=== PATIENT | male | born 1945 | race Caucasian/White ===

== ENCOUNTER → 2019-01-24 | Outpatient (CLI) | payer MEDICARE ==
[2019-01-24 19:31] LABS: Source, Urine Clean Catch
[2019-01-24 19:41] LABS: Bilirubin, Urine Neg (Neg); Blood, Urine Neg (Neg); Glucose Qualitative, Urine Neg (Neg); Ketones, Urine Neg (Neg); Leukocyte Esterase, Urine 1+ (Neg); Nitrite, Urine Neg (Neg); Protein, Urine Neg (Neg); Urobilinogen, Urine NORM (Normal)
[2019-01-24 19:46] LABS: Appearance, Urine Clear (Clear); Color, Urine Yellow (P-Yellow)
[2019-01-24 19:47] LABS: Bacteria Mod /hpf; Red Blood Cells, Urine 0-2 /hpf (0-2); Squamous Epithelial Cells Few /hpf (Few)
== END | disposition home or self-care (01) ==
LOC: LAB 19:28 → LAB SHORT 19:28
PROVIDERS: Psychiatry & Neurology Psychiatry
DX: N39.0 Urinary tract infection, site not specified (principal)
CPT/HCPCS: 81001; 87086

== ENCOUNTER → 2019-03-01 | Outpatient (CLI) | payer MEDICARE, OTHER ==
[2019-03-01 19:26] LABS: Source, Urine Clean Catch
[2019-03-01 19:40] LABS: Appearance, Urine Clear (Clear); Bilirubin, Urine Neg (Neg); Blood, Urine Neg (Neg); Color, Urine Yellow (P-Yellow); Glucose Qualitative, Urine Neg (Neg); Ketones, Urine Neg (Neg); Leukocyte Esterase, Urine Neg (Neg); Nitrite, Urine Neg (Neg); Protein, Urine Neg (Neg); Specific Gravity, Urine 1.015 (1.003-1.022); Urobilinogen, Urine NORM (Normal)
== END | disposition home or self-care (01) ==
LOC: LAB 19:24 → LAB SHORT 19:24
PROVIDERS: Nurse Practitioner Family
DX: N39.0 Urinary tract infection, site not specified (principal)
CPT/HCPCS: 81003

== ENCOUNTER 2019-03-16 12:40 | Inpatient (IN) | payer MEDICARE, OTHER ==
[~2019-03-16] VITALS: Ht 177.8 cm; Wt 68.0 kg
[2019-03-16] MEDS ORDERED: ASPI81CH PO (13:47)
[2019-03-16] MEDS ORDERED: Prozac20 MG PO (13:48)
[2019-03-16] MEDS ORDERED: DOXE10 PO (13:48)
[2019-03-16] MEDS ORDERED: FAMO20 PO (13:48)
[2019-03-16] MEDS ORDERED: Haloperidol2 MG/1 ML PO ×2 (13:49→13:57)
[2019-03-16] MEDS ORDERED: FOLI1 PO (13:49)
[2019-03-16] MEDS ORDERED: METTREX2.5 PO (13:50)
[2019-03-16] MEDS ORDERED: LEVSOD125 PO (13:50)
[2019-03-16] MEDS ORDERED: Senna Plus Tab1 EACH PO (13:51)
[2019-03-16] MEDS ORDERED: VITAMIN B-121000 MCG PO (13:52)
[2019-03-16] MEDS ORDERED: B-1100 MG PO (13:52)
[2019-03-16] MEDS ORDERED: ACET325 PO (13:53)
[2019-03-16] MEDS ORDERED: ANTACID PLUS A355 M1 PO (13:54)
[2019-03-16] MEDS ORDERED: BISA10S PR (13:55)
[2019-03-16] MEDS ORDERED: PHOSPHASODA PR (13:55)
[2019-03-16] MEDS ORDERED: Cough Syru100 MG/5 M PO (13:56)
[2019-03-16 13:57] LABS: BASOPHILS ABSOLUTE AUTO 0.06 K/mm3 (0.00-0.23); BASOPHILS PERCENT AUTO 0 % (0-2); EOSINOPHILS ABSOLUTE AUTO 0.02 K/mm3 (0.00-0.68); EOSINOPHILS PERCENT AUTO 0 % (0-6); Hemoglobin 12.7 g/dL (13.5-17.5); IMMATURE GRAN ABSOLUTE AUTO 0.13 K/mm3 (0.00-0.10); IMMATURE GRAN PERCENT AUTO 1 % (0-1); LYMPHOCYTES ABSOLUTE AUTO 1.68 K/mm3 (0.84-5.20); LYMPHOCYTES PERCENT AUTO 7 % (21-46); MONOCYTES ABSOLUTE AUTO 2.11 K/mm3 (0.16-1.47); MONOCYTES PERCENT AUTO 8 % (4-13); Mean Corpuscular HGB 30.9 pg (26.0-34.0); Mean Corpuscular Volume 100 fL (80-100); Mean Platelet Volume 9.6 fL (9.1-12.4); NEUTROPHILS ABSOLUTE AUTO 21.45 K/mm3 (1.96-9.15); NEUTROPHILS PERCENT AUTO 84 % (41-73); Platelet Count 293 K/mm3 (150-400); RDW Coefficient Variation 14.1 % (11.7-14.2); RDW Standard Deviation 51.7 fL (35.1-46.3); Red Blood Cell Count 4.11 M/mm3 (4.30-5.90); White Blood Cell Count 25.45 K/mm3 (4.00-11.30)
[2019-03-16] MEDS ORDERED: Anti-Diarrheal2 MG PO (13:57)
[2019-03-16] MEDS ORDERED: Milk Of Ma400 MG/5 M PO (13:57)
[2019-03-16] MEDS ORDERED: ONDA4ODT SL (13:58)
[2019-03-16] MEDS ORDERED: Triple Antibio1 EACH TOP (13:59)
[2019-03-16 16:29] LABS: Alanine Aminotransfer (ALT/SGP 49 U/L (12-78); Albumin, Blood 2.8 g/dL (3.4-5.0); Albumin/Globulin Ratio 0.6 (0.8-1.8); Alk Phos 139 U/L (50-136); Anion Gap 8 mmol/L (6-16); Aspartate Aminotrans (AST/SGOT 37 U/L (12-37); Bilirubin, Total 0.7 mg/dL (0.1-1.0); Blood Urea Nitrogen 16 mg/dL (8-24); Bun/Creatinine Ratio 23.8 (12.0-20.0); CO2, Blood 26 mmol/L (21-32); Calcium, Blood 8.8 mg/dL (8.5-10.1); Chloride, Blood 106 mmol/L (98-108); Creatinine, Blood 0.67 mg/dL (0.60-1.20); Globulin, Blood 4.4 g/dL (2.2-4.0); Glomerular Filtration Rate >60 (60-); Glucose, Blood 127 mg/dL (70-99); Potassium, Blood 3.5 mmol/L (3.5-5.5); Sodium, Blood 140 mmol/L (136-145); Total Protein, Blood 7.2 g/dL (6.4-8.2); Troponin I <0.015 ng/mL (0.000-0.040)
--- NOTE | 2019-03-16 19:27 | NUR ---
SHIFT SUMMARY: PATIENT ADMIT FROM ED THIS SHIFT. PT SLEEPING SINCE ARRIVAL ON MEDICAL; NO C/O PAIN OR NAUSEA. IV FLUIDS & ABX INFUSING. REPORT GIVEN TO ONCOMING RN.
--- NOTE | 2019-03-16 21:49 | NUR ---
THIS NURSE CONTACTED [facility] AND REQUESTED THAT A CURRENT MEDICATIONS LIST BE PROVIDED TO HOSPITAL WITH THIS NURSE PROVIDING FAX NUMBER ([phone]). FACILITY WILL FAX THIS INFORMATION TONIGHT.
[2019-03-16] MEDS ORDERED: LEVO750 PO (23:08)
--- NOTE | 2019-03-17 04:08 | NUR ---
SHIFT SUMMARY: 73 Y/O MALE RESTED COMFORTABLY ALL SHIFT. PT REFUSED TO TAKE ANY EVENING OR EARLY AM MEDICATIONS AND WOULD NOT DRINK WATER WHEN OFFERED BY STAFF. PT IS CONFUSED AND UNABLE TO VOICE ANY UNDERSTANDABLE WORDS. PT INCONTINENT BLADDER WITH ENTIRE BEDDING CHANGED ONCE. PT APPEARS TO HAVE NO PAIN OR NAUSEA. PTS BED ALARM APPLIED, BED LOW POSITION, CALL LIGHT AT SIDE.
[2019-03-17 05:06] LABS: BASOPHILS ABSOLUTE AUTO 0.05 K/mm3 (0.00-0.23); BASOPHILS PERCENT AUTO 0 % (0-2); EOSINOPHILS ABSOLUTE AUTO 0.02 K/mm3 (0.00-0.68); EOSINOPHILS PERCENT AUTO 0 % (0-6); Hemoglobin 11.2 g/dL (13.5-17.5); IMMATURE GRAN ABSOLUTE AUTO 0.12 K/mm3 (0.00-0.10); IMMATURE GRAN PERCENT AUTO 1 % (0-1); LYMPHOCYTES ABSOLUTE AUTO 1.78 K/mm3 (0.84-5.20); LYMPHOCYTES PERCENT AUTO 8 % (21-46); MONOCYTES ABSOLUTE AUTO 1.77 K/mm3 (0.16-1.47); MONOCYTES PERCENT AUTO 8 % (4-13); Mean Corpuscular HGB 31.1 pg (26.0-34.0); Mean Platelet Volume 9.6 fL (9.1-12.4); NEUTROPHILS ABSOLUTE AUTO 18.89 K/mm3 (1.96-9.15); NEUTROPHILS PERCENT AUTO 84 % (41-73); Platelet Count 287 K/mm3 (150-400); RDW Standard Deviation 49.6 fL (35.1-46.3); White Blood Cell Count 22.63 K/mm3 (4.00-11.30)
[2019-03-17 05:16] LABS: Mean Corpuscular Volume 97 fL (80-100)
[2019-03-17 05:29] LABS: Alanine Aminotransfer (ALT/SGP 47 U/L (12-78); Albumin, Blood 2.4 g/dL (3.4-5.0); Albumin/Globulin Ratio 0.6 (0.8-1.8); Alk Phos 144 U/L (50-136); Anion Gap 7 mmol/L (6-16); Aspartate Aminotrans (AST/SGOT 39 U/L (12-37); Blood Urea Nitrogen 13 mg/dL (8-24); Bun/Creatinine Ratio 18.1 (12.0-20.0); CO2, Blood 26 mmol/L (21-32); Calcium, Blood 8.3 mg/dL (8.5-10.1); Chloride, Blood 108 mmol/L (98-108); Creatinine, Blood 0.72 mg/dL (0.60-1.20); Globulin, Blood 4.2 g/dL (2.2-4.0); Glomerular Filtration Rate >60 (60-); Glucose, Blood 108 mg/dL (70-99); Potassium, Blood 3.4 mmol/L (3.5-5.5); Sodium, Blood 141 mmol/L (136-145); Total Protein, Blood 6.6 g/dL (6.4-8.2)
--- NOTE | 2019-03-17 12:26 | NUR ---
HIS IVF'S HAVE BEEN INFUSING WELL ALL DAY. HE HAS ONLY EATEN A CHOCOLATE PUDDING AND SOME SHERBET WITH MEDS. HE HAS REFUSED BREAKFAST AND LUNCH SO FAR TODAY. HE SWEARS AT US WHEN WE GIVE CARE OR TRY TO GIVE CARE. HE HAS SLEPT. HE HAS A SHALLOW WET COUGH I HEAR NOW THAT I DID NOT HEAR THIS MORNING. HE IS WARM AND CLAMMY. TEMP NOW 100.6. HE IS CONFUSED. BED ALARM ON. ATTENDS CHANGED AND PARTIAL BEDBATH DONE. HIS ATTENDS WERE SATURATED.PAS ON BILATERALLY.TRIED TO GIVE HIM PO POTASSIOUM REPLACEMENT BUT HE TOOK ONLY PART OF IT SO FAR. WILL TRY AGAIN.
--- NOTE | 2019-03-17 13:03 | NUR ---
HIS DAUGHTER VERENICE CALLED FOR AN UPDATE. SHE IS [place]. HE ENDED UP EATING 25% OF LUNCH AFTER FIRST REFUSING IT. HE LET ME DO THE RESPIRATORY PANEL VIRAL SWAB JUST NOW.
[2019-03-17 14:46] LABS: Adenovirus Not Detected (NOT DETECT); Bordetella pertussis Not Detected (NOT DETECT); Chlamydophila pneumoniae Not Detected (NOT DETECT); Coronavirus 229E Not Detected (NOT DETECT); Coronavirus HKU1 Not Detected (NOT DETECT); Coronavirus NL63 Not Detected (NOT DETECT); Coronavirus OC43 Not Detected (NOT DETECT); Human Metapneumovirus Not Detected (NOT DETECT); Human Rhinovirus/Enterovirus Not Detected (NOT DETECT); Influenza A Not Detected (NOT DETECT); Influenza A/2009-H1 Not Detected (NOT DETECT); Influenza A/H1 Not Detected (NOT DETECT); Influenza A/H3 Not Detected (NOT DETECT); Influenza B Not Detected (NOT DETECT); Mycoplasma pneumoniae Not Detected (NOT DETECT); Parainfluenza Virus 1 Not Detected (NOT DETECT); Parainfluenza Virus 2 Not Detected (NOT DETECT); Parainfluenza Virus 3 Not Detected (NOT DETECT); Parainfluenza Virus 4 Not Detected (NOT DETECT); Respiratory Syncytial Virus Not Detected (NOT DETECT)
--- NOTE | 2019-03-17 18:35 | NUR ---
HE IS MORE ALERT TONIGHT THAN THIS MORNING. HE WALKED IN THE ROOM WITH SBA. HE WAS CONTINENT THIS LAST TIME. HE EATS IF HE WANTS TO, HAD MODERATE INTAKE THIS EVENING. IVF'S AND ANTIBIOTICS CONTINUE.
--- NOTE | 2019-03-18 04:06 | NUR ---
0345 PT PULLED OUT RIGHT ANTECUBITAL IV WITH ENTIRE CATHETER INTACT. PRESSURE DRESSING APPLIED TO SITE.
[2019-03-18 05:40] LABS: BASOPHILS ABSOLUTE AUTO 0.04 K/mm3 (0.00-0.23); BASOPHILS PERCENT AUTO 0 % (0-2); EOSINOPHILS ABSOLUTE AUTO 0.05 K/mm3 (0.00-0.68); EOSINOPHILS PERCENT AUTO 0 % (0-6); Hematocrit 34.5 % (37.0-53.0); Hemoglobin 11.1 g/dL (13.5-17.5); IMMATURE GRAN ABSOLUTE AUTO 0.19 K/mm3 (0.00-0.10); IMMATURE GRAN PERCENT AUTO 1 % (0-1); LYMPHOCYTES ABSOLUTE AUTO 2.31 K/mm3 (0.84-5.20); LYMPHOCYTES PERCENT AUTO 12 % (21-46); MONOCYTES ABSOLUTE AUTO 1.45 K/mm3 (0.16-1.47); MONOCYTES PERCENT AUTO 8 % (4-13); Mean Corpuscular HGB 30.7 pg (26.0-34.0); Mean Corpuscular HGB Conc 32.2 g/dL (31.5-36.5); Mean Corpuscular Volume 95 fL (80-100); NEUTROPHILS ABSOLUTE AUTO 14.55 K/mm3 (1.96-9.15); NEUTROPHILS PERCENT AUTO 78 % (41-73); Platelet Count 309 K/mm3 (150-400); RDW Coefficient Variation 13.8 % (11.7-14.2); RDW Standard Deviation 48.6 fL (35.1-46.3); Red Blood Cell Count 3.62 M/mm3 (4.30-5.90); White Blood Cell Count 18.59 K/mm3 (4.00-11.30)
[2019-03-18 06:13] LABS: Alanine Aminotransfer (ALT/SGP 36 U/L (12-78); Albumin, Blood 2.2 g/dL (3.4-5.0); Albumin/Globulin Ratio 0.6 (0.8-1.8); Alk Phos 144 U/L (50-136); Anion Gap 7 mmol/L (6-16); Aspartate Aminotrans (AST/SGOT 25 U/L (12-37); Bilirubin, Total 0.7 mg/dL (0.1-1.0); Blood Urea Nitrogen 12 mg/dL (8-24); Bun/Creatinine Ratio 17.8 (12.0-20.0); CO2, Blood 25 mmol/L (21-32); Calcium, Blood 8.3 mg/dL (8.5-10.1); Chloride, Blood 107 mmol/L (98-108); Creatinine, Blood 0.67 mg/dL (0.60-1.20); Glomerular Filtration Rate >60 (60-); Glucose, Blood 101 mg/dL (70-99); Potassium, Blood 3.3 mmol/L (3.5-5.5); Sodium, Blood 139 mmol/L (136-145); Total Protein, Blood 6.2 g/dL (6.4-8.2)
--- NOTE | 2019-03-18 07:27 | NUR ---
SHIFT SUMMARY: 73 Y/O MALE RESTED COMFORTABLY FIRST 6 HOURS OF SHIFT AND THEN BECAME SLIGHTLY MORE RESTLESS WITH TWO IV'S PULLED OUT BY PATIENT. PT ALERT TO PERSON ONLY, FOLLOW SIMPLE VERBAL COMMANDS. PT DID NOT ATTEMPT TO CLIMB OOB. PT DENIES PAIN OR NAUSEA. PTS BED ALARM APPLIED, BED LOW POSITION, CALL LIGHT AT SIDE. PT REQUIRED ASSISTANCE WITH DRINKING FLUIDS AND EATING SNACKS BY STAFF.
[2019-03-18 13:37] LABS: Hematocrit 35.7 % (37.0-53.0); Hemoglobin 11.8 g/dL (13.5-17.5); Mean Corpuscular HGB 31.8 pg (26.0-34.0); Mean Corpuscular HGB Conc 33.1 g/dL (31.5-36.5); Mean Corpuscular Volume 96 fL (80-100); Mean Platelet Volume 9.3 fL (9.1-12.4); Platelet Count 296 K/mm3 (150-400); RDW Coefficient Variation 13.7 % (11.7-14.2); RDW Standard Deviation 48.6 fL (35.1-46.3); Red Blood Cell Count 3.71 M/mm3 (4.30-5.90); White Blood Cell Count 16.03 K/mm3 (4.00-11.30)
--- NOTE | 2019-03-18 15:59 | NUR ---
HE MOVED OVER TO 345 IN THE SCU AT 1550 SO THAT HE CAN AMBULATE FREELY BEHIND CLOSED DOORS. HE HAS BEEN PLEASANTLY CONFUSED ALL DAY. HE HAS EATEN FAIR. HE HAS TAKEN HIS MEDS CRUSHED AND WHOLE BUT ALWAYS IN PUDDING. NO RESPIRATORY DISTRESS. VSS. CONTINUES TO BE INCONTINENT OF URINE. WBC'S COMING DOWN. [facility] RN CALLED ME BACK AND EXPLAINED THEY COULD NOT ACCEPT HIM BACK HOME TODAY BUT WOULD TOMORROW.
--- NOTE | 2019-03-18 17:55 | NUR ---
SHIFT SUMMARY MEDICAL FLOOR TRANSFER TO SCU THIS AFTERNOON. PATIENT UP INDEPENDENT IN ROOM. PATIENT COOPERATIVE WITH CARE BUT DOES ATTEMPT TO LEAVE UNIT. REDIRECTED EASILY. ATTEMPTED TO PULL OUT IV SEVERAL TIMES. CALL LIGHT IN REACH, WILL CONTINUE TO MONITOR.
--- NOTE | 2019-03-19 04:35 | NUR ---
SHIFT SUMMARY PT IS A 73 Y/O MALE, ADMITTED FOR RLL PNA. HE IS A&O X SELF ONLY, AND DIFFICULT TO REDIRECT. PT TENDS TO WANDER IN THE HALLWAY WHEN AWAKE, THOUGH HE WAS PLACED ON A BED ALARM AFTER HE FELL IN HIS ROOM. THERE WAS NO SIGNS OF MAJOR BRUISING OR INJURY, AND PT DENIED ANY COMPLAINTS OF PAIN. VITALS WERE STABLE DURING THE NIGHT AND AFTER HIS FALL. NO COMPLAINTS OF PAIN, NAUSEA OR SOB DURING THE NIGHT. PT SLEPT WELL THROUGH THE NIGHT. NO OTHER ACUTE CHANGES IN PT CONDITION NOTED. WILL CONTINUE TO MONITOR AND TREAT PER EMAR.
[2019-03-19 05:21] LABS: BASOPHILS ABSOLUTE AUTO 0.05 K/mm3 (0.00-0.23); BASOPHILS PERCENT AUTO 0 % (0-2); EOSINOPHILS ABSOLUTE AUTO 0.08 K/mm3 (0.00-0.68); EOSINOPHILS PERCENT AUTO 1 % (0-6); Hematocrit 34.2 % (37.0-53.0); Hemoglobin 11.1 g/dL (13.5-17.5); IMMATURE GRAN ABSOLUTE AUTO 0.19 K/mm3 (0.00-0.10); IMMATURE GRAN PERCENT AUTO 1 % (0-1); LYMPHOCYTES ABSOLUTE AUTO 1.63 K/mm3 (0.84-5.20); LYMPHOCYTES PERCENT AUTO 12 % (21-46); MONOCYTES ABSOLUTE AUTO 1.16 K/mm3 (0.16-1.47); MONOCYTES PERCENT AUTO 9 % (4-13); Mean Corpuscular HGB 31.3 pg (26.0-34.0); Mean Corpuscular HGB Conc 32.5 g/dL (31.5-36.5); Mean Corpuscular Volume 96 fL (80-100); Mean Platelet Volume 9.4 fL (9.1-12.4); NEUTROPHILS ABSOLUTE AUTO 10.21 K/mm3 (1.96-9.15); NEUTROPHILS PERCENT AUTO 77 % (41-73); Platelet Count 324 K/mm3 (150-400); RDW Coefficient Variation 13.7 % (11.7-14.2); RDW Standard Deviation 49.1 fL (35.1-46.3); Red Blood Cell Count 3.55 M/mm3 (4.30-5.90); White Blood Cell Count 13.32 K/mm3 (4.00-11.30)
[2019-03-19 05:45] LABS: Alanine Aminotransfer (ALT/SGP 35 U/L (12-78); Albumin, Blood 2.3 g/dL (3.4-5.0); Albumin/Globulin Ratio 0.6 (0.8-1.8); Alk Phos 143 U/L (50-136); Anion Gap 7 mmol/L (6-16); Aspartate Aminotrans (AST/SGOT 28 U/L (12-37); Bilirubin, Total 0.5 mg/dL (0.1-1.0); Blood Urea Nitrogen 12 mg/dL (8-24); Bun/Creatinine Ratio 17.5 (12.0-20.0); CO2, Blood 25 mmol/L (21-32); Calcium, Blood 8.4 mg/dL (8.5-10.1); Chloride, Blood 107 mmol/L (98-108); Creatinine, Blood 0.69 mg/dL (0.60-1.20); Globulin, Blood 4.1 g/dL (2.2-4.0); Glomerular Filtration Rate >60 (60-); Glucose, Blood 102 mg/dL (70-99); Potassium, Blood 3.5 mmol/L (3.5-5.5); Sodium, Blood 139 mmol/L (136-145); Total Protein, Blood 6.4 g/dL (6.4-8.2)
[2019-03-19] MEDS ORDERED: CVS DISPOSABLE399 ML (12:14)
[2019-03-19] MEDS ORDERED: FLEET ENEMA EX230 ML (12:14)
[2019-03-19] MEDS ORDERED: ALBU90OI INH (12:15)
[2019-03-19] MEDS ORDERED: BENZ100A PO (12:16)
[2019-03-19] MEDS ORDERED: CEPH500 PO (12:17)
[2019-03-19] MEDS ORDERED: Nicoderm Cq1 EACH TOP (12:18)
[2019-03-19] MEDS ORDERED: Florastor250 MG PO (12:19)
--- NOTE | 2019-03-19 16:22 | NUR ---
DISCHARGE SUMMARY PATIENT ALERT TO SELF. REFUSED ALL MORNING MEDICATIONS. WAS VERY DIFFICULT TO REORIENT. PATIENT WAS UP WALKING THE HALLS THIS AFTERNOON, SBA WAS STEADY ON HIS FEET. DISCHARGE INFORMATION REVIEWED AND SENT WITH THE PATIENT. FOLLOW UP APPOINTMENT SCHEDULED. MEDICATIONS FAXED TO PHARMACY. IV D/C, WNL. [facility] TRANSPORTED PATIENT OUT BY WHEELCHAIR, ALL BELONGINGS IN HAND.
== END 2019-03-19 15:50 | disposition home or self-care (01) | DRG 871 ==
LOC: ER 12:40 → MEDS 16:31 → ENPENDDIS 03-19 11:32 → MEDS 03-19 15:50
PROVIDERS: Physician Assistant; ADMIT Family Medicine
DX: A41.9 Sepsis, unspecified organism (principal); J18.9 Pneumonia, unspecified organism; G93.41 Metabolic encephalopathy; Z66 Do not resuscitate; I10 Essential (primary) hypertension; I25.10 Atherosclerotic heart disease of native coronary artery without angina pectoris; E03.9 Hypothyroidism, unspecified; E87.6 Hypokalemia; F17.200 Nicotine dependence, unspecified, uncomplicated; K21.9 Gastro-esophageal reflux disease without esophagitis; F03.90 Unspecified dementia, unspecified severity, without behavioral disturbance, psychotic disturbance, mood disturbance, and anxiety; M06.9 Rheumatoid arthritis, unspecified; J44.9 Chronic obstructive pulmonary disease, unspecified; R74.8 Abnormal levels of other serum enzymes; Z88.5 Allergy status to narcotic agent; Z79.82 Long term (current) use of aspirin; Z79.899 Other long term (current) drug therapy
CPT/HCPCS: 36415; 71045; 71046; 73100; 73120; 80053; 83605; 84145; 84484; 85025; 85027; 87040; 87486; 87581; 87633; 87798; 93005; 93010; 94760; 96365; 96366; 96372-59; 99285-25; J0696; J1630; J1650; J1956; J7030; J7120

== ENCOUNTER → 2019-10-11 | Outpatient (CLI) | payer MEDICARE, OTHER ==
[~2019-10-11] MED LIST: ACET325 PO; ALBU90OI INH; ANTACID PLUS A355 M1 PO; ASPI81CH PO; Anti-Diarrheal2 MG PO; B-1100 MG PO; BENZ100A PO; BISA10S PR; CEPH500 PO; CVS DISPOSABLE399 ML; Cough Syru100 MG/5 M PO; DOXE10 PO; FAMO20 PO; FLEET ENEMA EX230 ML; FOLI1 PO; Florastor250 MG PO; Haloperidol2 MG/1 ML PO; LEVO750 PO; LEVSOD125 PO; METTREX2.5 PO; Milk Of Ma400 MG/5 M PO; Nicoderm Cq1 EACH TOP; ONDA4ODT SL; PHOSPHASODA PR; Prozac20 MG PO; Senna Plus Tab1 EACH PO; Triple Antibio1 EACH TOP; VITAMIN B-121000 MCG PO
[2019-10-12 17:53] LABS: Source, Urine Clean Catch
[2019-10-12 20:06] LABS: Bilirubin, Urine Neg (Neg); Blood, Urine Neg (Neg); Glucose Qualitative, Urine Neg (Neg); Ketones, Urine Neg (Neg); Leukocyte Esterase, Urine Neg (Neg); Nitrite, Urine Neg (Neg); Protein, Urine Neg (Neg); Specific Gravity, Urine 1.015 (1.003-1.022); Urobilinogen, Urine NORM (Normal); pH, Urine 6.5 (5.0-8.0)
[2019-10-12 20:08] LABS: Appearance, Urine Clear (Clear); Color, Urine Yellow (P-Yellow)
== END | disposition home or self-care (01) ==
LOC: LAB 17:50 → LAB SHORT 17:50
PROVIDERS: Nurse Practitioner Family
DX: N39.0 Urinary tract infection, site not specified (principal)
CPT/HCPCS: 81003

== ENCOUNTER → 2019-12-18 | Outpatient (CLI) | payer MEDICARE, OTHER ==
[2019-12-18 15:27] LABS: Bilirubin, Urine Neg (Neg); Blood, Urine Neg (Neg); Glucose Qualitative, Urine Neg (Neg); Ketones, Urine Neg (Neg); Leukocyte Esterase, Urine Neg (Neg); Nitrite, Urine Neg (Neg); Protein, Urine 1+ (Neg); Urobilinogen, Urine 2+ (Normal)
[2019-12-18 15:38] LABS: Appearance, Urine Cloudy (Clear); Color, Urine Yellow (P-Yellow)
[2019-12-18 15:39] LABS: Amorphous Heavy (0-Heavy); Bacteria Few /hpf; Calcium Oxalate Crystals Few /hpf; Red Blood Cells, Urine 0-2 /hpf (0-2); Squamous Epithelial Cells Few /hpf (Few); White Blood Cells, Urine 0-2 /hpf (0-5)
== END | disposition home or self-care (01) ==
LOC: LAB SHORT 13:22 → LAB 13:22
PROVIDERS: Nurse Practitioner Family
DX: N39.0 Urinary tract infection, site not specified (principal)
CPT/HCPCS: 81001